=== PATIENT | female | born 1955 | race Caucasian/White ===

== ENCOUNTER 2016-08-20 10:46 | Outpatient (CLI) | payer MEDICARE ==
[2012-12-22 12:06] VITALS: BP 108/68
== END 2016-08-20 10:47 ==
LOC: LABRHC 10:46
PROVIDERS: ATTEND Physician Assistant
DX: N30.00 Acute cystitis without hematuria (principal)
CPT/HCPCS: 87086; 87186

== ENCOUNTER 2016-12-09 08:54 | Outpatient (CLI) | payer MEDICARE ==
[2012-12-22 12:06] VITALS: BP 108/68
--- NOTE | 2016-12-09 14:26 | Diagnostic Imaging Report ---
NEEL BRUNO [facility] [address] [address] [facility] [address] [place] [address]. [id number] Report Submission Date: Dec 09, 2016 10:35:21 AM CDT Patient Study Name: NIKITA GREENE Date: Dec 09, 2016 9:09:17 AM CDT Modality Type: US Gender: F Description: US ABD LIMITED : 53 Institution: [facility] Physician: NEEL BRUNO Ultrasound right upper quadrant History: Right upper quadrant pain and nausea Findings: The pancreas is incompletely visualized due to obesity. Moderately increased hepatic parenchymal echogenicity is observed. Antegrade main portal venous flow is present. The right kidney exhibits a prominent column of Yomi. The gallbladder is normal without stones, wall thickening, or distention. Common bile duct diameter is 3 mm. Impression: Hepatic steatosis. Otherwise normal exam. Electronically signed on Dec 09, 2016 10:35:21 AM CDT by: Oscar WILSON
== END 2016-12-09 08:55 ==
LOC: RAD 08:54
PROVIDERS: ATTEND Family Medicine
DX: R10.11 Right upper quadrant pain (principal)
CPT/HCPCS: 76705

== ENCOUNTER 2017-01-12 08:50 | Day surgery (SDC) | payer MEDICARE ==
[2012-12-22 12:06] VITALS: BP 108/68
[~2017-01-12 08:50] MED LIST: LACTATED RINGERS 1,000 ML IV.SOLN IV ONE; PROPOFOL 500 MG/50 ML VIAL IV ONE; SALINE FLUSH 10 ML DISP.SYRIN IVF ONE
--- NOTE | 2017-01-13 09:55 | GI Report ---
REFERRING PHYSICIAN: Dr. Sanju Lindsey BALLING HEAD TENDER: Darius Wing MD PROCEDURE MEDICATION: Propofol as per anesthesia. INDICATIONS: This 61-year-old woman has had a number of adenomatous polyps in the past. She comes for a follow-up evaluation. She also has COPD. She does have central obesity. PROCEDURE PERFORMED: Colonoscopy with polypectomy. PROCEDURE: An Olympus video colonoscope was advanced to the rectum and slowly advanced to the cecum. In the ascending colon, the patient as 2 polyps varying from 3 to 4 mm in size, sessile, and removed with electrocautery. At the hepatic flexure, there is a 4 mm sessile polyp removed with electrocautery. In the sigmoid colon , there are 2 polyps removed between 3 and 4 mm in size with electrocautery. 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 FINDINGS: Five polyps removed and submitted for pathology. RECOMMENDATIONS: 1. High-fiber diet. 2. Would add Metamucil or Citrucel daily. 3. Pending the pathology of the polyps, she needs her colon re-looked at again between 3 and 5 years. cc: Dr. Sanju WILSON
== END 2017-01-12 08:52 ==
LOC: OPSURG 08:50
PROVIDERS: ATTEND Internal Medicine Gastroenterology
DX: D12.2 Benign neoplasm of ascending colon (principal); D12.5 Benign neoplasm of sigmoid colon; K63.5 Polyp of colon; J44.9 Chronic obstructive pulmonary disease, unspecified; E66.9 Obesity, unspecified
CPT/HCPCS: 88305; J2704; J7120; 45385; S1016

== ENCOUNTER 2019-05-31 09:26 | Outpatient (CLI) | payer MEDICARE ==
[2012-12-22 12:06] VITALS: BP 108/68
== END 2019-05-31 09:31 ==
LOC: LAB 09:26
PROVIDERS: ATTEND Family Medicine
DX: Z20.2 Contact with and (suspected) exposure to infections with a predominantly sexual mode of transmission (principal)
CPT/HCPCS: 36415; 86703; 86803; 87491; 87591